=== PATIENT | female | born 1980 | race Two or more races ===

== ENCOUNTER 2018-10-30 09:55 | Outpatient (CLI) | payer OTHER | END 2018-10-30 09:57 | disposition home or self-care (01) | LOC: TOM 09:55 | DX: R10.2 Pelvic and perineal pain (principal) ==

== ENCOUNTER 2023-12-22 10:00 | Inpatient (IN) | payer OTHER ==
[~2023-12-22] VITALS: Ht 157.5 cm; Wt 65.8 kg
[2023-12-22] MEDS ORDERED: ZYRTEC10 MG PO (12:00)
[2023-12-22] MEDS ORDERED: LOSARTAN-HCTZ1 EACH PO (12:00)
[2023-12-22 12:05] VITALS: BP 145/82
[2023-12-22 12:06] VITALS: BP 124/80
[2023-12-29] MEDS ORDERED: CEFOXITIN SODIUM 2,000 MG VIAL IV ONE (08:00)
[2023-12-29] MEDS ORDERED: SUGAMMADEX SODIUM 200 MG/2 ML VIAL IV ONE (08:30)
[2023-12-29] MEDS ORDERED: MORPHINE SULFATE 4 MG/ML VIAL IV ONE ×2 (10:30→11:20)
[2023-12-29 11:53] VITALS: BP 124/80
[2023-12-29] MEDS ORDERED: PROMETHAZINE HCL 25 MG/ML AMPUL IV SCH (12:00)
[2023-12-29] MEDS ORDERED: MEPERIDINE HCL/PF 50 MG/ML VIAL IV SCH (12:00)
[2023-12-29 16:22] VITALS: BP 131/68
[2023-12-29 17:49] LABS: HEMATOCRIT 36.3 % (36.0-45.00); HEMOGLOBIN 12.1 g/dL (12.0-15.00); MEAN CELL VOLUME 94.6 fL (80.00-100.00); MEAN CORPUSCULAR HEMOGLOBIN 31.6 pg (27.00-32.0); MEAN CORPUSCULAR HGB CONC 33.5 g/dl (32.0-36.0); PLATELET COUNT 242 K/uL (150-450); RED BLOOD COUNT 3.83 M/uL (4.00-6.00); RED CELL DISTRIBUTION WIDTH 13.4 % (11.5-14.5)
[2023-12-30 01:11] VITALS: BP 132/87
[2023-12-30] MEDS ORDERED: POLYETHYLENE GLYCOL 3350 17 GM BLIST.PACK PO SCH (05:00)
[2023-12-30] MEDS ORDERED: SIMETHICONE 125 MG CAPSULE PO SCH (05:00)
[2023-12-30] MEDS ORDERED: IBUprofen 800 MG TABLET PO SCH (06:00)
[2023-12-30 08:00] VITALS: BP 134/85
[2023-12-30] MEDS ORDERED: LOSARTAN/HYDROCHLOROTHIAZIDE 1 UDTAB TABLET PO SCH (09:00)
[2023-12-30] MEDS ORDERED: GABAPENTIN 300 MG CAPSULE PO SCH (09:00)
[2023-12-30 17:51] VITALS: BP 137/85
[2023-12-30 21:05] VITALS: BP 140/84
[2023-12-31 01:30] VITALS: BP 124/80
[2023-12-31 08:00] VITALS: BP 114/75
[2023-12-31 16:00] VITALS: BP 121/80
[2024-01-01 03:07] VITALS: BP 105/69
[2024-01-01] MEDS ORDERED: GABAPENTIN300 MG PO (07:01)
[2024-01-01] MEDS ORDERED: IBUPROFEN800 MG PO (07:01)
[2024-01-01] MEDS ORDERED: POLY119PG PO (07:01)
[2024-01-01] MEDS ORDERED: SIMETHICONE125 M1 PO (07:01)
[2024-01-01 09:20] VITALS: BP 111/74
== END 2024-01-01 11:22 | disposition home or self-care (01) | DRG 743 ==
LOC: O/R 12-29 05:37 → SURH 12-29 07:00 → OB/GYN 12-29 10:17
PROVIDERS: ADMIT Obstetrics & Gynecology; ATTEND Obstetrics & Gynecology
PROC: 0UT70ZZ Resection of Bilateral Fallopian Tubes, Open Approach (ICD-10-PCS; 2023-12-29)
PROC: 0UT90ZZ Resection of Uterus, Open Approach (ICD-10-PCS; principal; 2023-12-29 07:00)
DX: D25.2 Subserosal leiomyoma of uterus (principal); R10.2 Pelvic and perineal pain; Z20.822 Contact with and (suspected) exposure to COVID-19

== ENCOUNTER 2024-01-22 16:52 | Emergency (ER) | payer OTHER ==
[~2024-01-22] VITALS: Ht 157.5 cm; Wt 83.9 kg
[~2024-01-22 16:52] MED LIST: GABAPENTIN300 MG PO; IBUPROFEN800 MG PO; LOSARTAN-HCTZ1 EACH PO; POLY119PG PO; SIMETHICONE125 M1 PO; ZYRTEC10 MG PO
[2024-01-22] MEDS ORDERED: HYZAAR 50-12.51 EACH PO (17:21)
[2024-01-22] MEDS ORDERED: CEFTRIAXONE SODIUM 1,000 MG VIAL IV ONE (19:00)
[2024-01-22 19:24] LABS: HEMATOCRIT 39.2 % (36.0-45.00); MEAN CELL VOLUME 94.9 fL (80.00-100.00); MEAN CORPUSCULAR HEMOGLOBIN 31.6 pg (27.00-32.0); MEAN CORPUSCULAR HGB CONC 33.3 g/dl (32.0-36.0); PLATELET COUNT 284 K/uL (150-450); RED BLOOD COUNT 4.13 M/uL (4.00-6.00); RED CELL DISTRIBUTION WIDTH 13.5 % (11.5-14.5)
[2024-01-22 19:48] LABS: CALCIUM 9.6 mg/dL (8.5-10.1); CREATININE SERUM 0.97 mg/dL (0.55-1.02); GFR 62.98; POTASSIUM 3.73 mEq/L (3.5-5.1)
[2024-01-22] MEDS ORDERED: DUI500 PO (20:36)
== END 2024-01-22 21:14 | disposition home or self-care (01) ==
LOC: ER 16:54
PROVIDERS: Emergency Medicine
DX: L53.9 Erythematous condition, unspecified (principal); T81.49XA Infection following a procedure, other surgical site, initial encounter; I10 Essential (primary) hypertension